=== PATIENT | male | born 1945 | race Caucasian/White ===

== ENCOUNTER 2023-12-28 09:22 | Day surgery (SDC) | payer MEDICARE, BC ==
[~2023-12-28] VITALS: Ht 182.9 cm; Wt 102.9 kg
[2023-12-28] VITALS (13 sets, daily range): BP systolic 127–164; BP diastolic 60–81; PULSE 54–84; TEMP 97.6–98.8
[~2023-12-28 09:22] MED LIST: Famotidine 20 MG TAB PO SCH; NS 1,000 ML IV SCH
--- NOTE | 2023-12-28 10:41 | NUR ---
Pt admitted to [facility] [place] [facility] at 0940. Admission assessments complete. Consent signed. 18G IV inserted into left wrist, lab specimen obtained, NS infusing as ordered. 250 ml of clear yellow urine emptied from chronic fonseca catheter, present on admission. Allergies, medications, and pharmacy reviewed. Daughter at bedside. See EMAR for medications. Cart in low position, call light within reach. Questions answered.
[2023-12-28 10:46] LABS: CALCIUM 9.9 mg/dL (8.4-10.2); CREATININE, serum 2.5 mg/dL (0.72-1.25); POTASSIUM 5.4 mEq/L (3.5-4.5)
[2023-12-28] MEDS ORDERED: Midazolam 2 MG/2 ML VIAL ONE (10:46)
[2023-12-28] MEDS ORDERED: Lidocaine PF 2% (20 MG/ML) 5 ML VIAL ONE (10:46)
[2023-12-28] MEDS ORDERED: NS 10 ML IV ONE (10:46)
[2023-12-28] MEDS ORDERED: fentaNYL 50 MCG/ML 2 ML VIAL ONE (10:46)
[2023-12-28] MEDS ORDERED: Ondansetron 4 MG/2 ML VIAL IV PRN ×2 (11:15→13:15)
[2023-12-28] MEDS ORDERED: Morphine 2 MG/1 ML VIAL [PACU/SDC ONLY] IV PRN (11:15)
[2023-12-28] MEDS ORDERED: Meperidine 50 MG/ML 1 ML VIAL IV PRN (11:15)
[2023-12-28] MEDS ORDERED: HYDROmorphone 1 MG/1 ML SYRINGE [PACU/SDC ONLY] IV PRN (11:15)
[2023-12-28] MEDS ORDERED: Hyoscyamine 0.125 MG Sublingual TAB SL PRN (13:15)
[2023-12-28] MEDS ORDERED: Morphine 4 MG/ML VIAL IV PRN (13:15)
[2023-12-28] MEDS ORDERED: Magnes Hydrox (MOM) 80 MG/ML 30 ML CUP PO PRN (13:15)
[2023-12-28] MEDS ORDERED: 1/2 NS & 20 mEq KCl 1,000 ML IV SCH (13:15)
[2023-12-28] MEDS ORDERED: NS Irrig Soln 3000 ML SOLN IR PRN (13:15)
[2023-12-28] MEDS ORDERED: Acetaminophen 325 MG TAB PO PRN (13:15)
--- NOTE | 2023-12-28 15:02 | NUR ---
PATIENT BROUGHT TO FLOOR AT APPROXIMATELY 1350. POST OP VITALS RUNNING AND WNL. FLUIDS INFUSING INTO LEFT WRIST AT 75ML/HOUR. [address] WAY DUARTE WITH CBI RUNNING AT A MODERATE RATE AND TO TRACTION. URINE PINK WITH SCATTERED CLOTS. PATIENT DENIES ANY PAIN OR BLADDER SPASMS. NO FURTHER NEEDS. CALL LIGHT IN REACH.
--- NOTE | 2023-12-28 19:36 | NUR ---
PT RESTING IN BED, ALERT AND ORIENTEDX4. ASSESSED PT. RATES PAIN 2/10 IN THE SHOULDERS FROM ARTHRITIS. CBI IS RUNNING MODERATLEY FAST. URINE IS LIGHT PINK. NO CLOTS. IV FLUIDS RUNNING INTO RIGHT WRIST AT 75ML/HR. PT HAS SCDS ON. ADDED CBI FLUID AND EMPTIED CATHETER. NO OTHER COMPLAINTS AT THIS TIME. CALL LIGHT WTIHIN REACH.
[2023-12-28] MEDS ORDERED: Nystatin 100,000 Units/GM Ointment 15 GM TUBE TP SCH (21:00)
--- NOTE | 2023-12-28 22:40 | NUR ---
PT GOT UP TO GO TO THE BATHROOM AND CLOTTED OFF. IRRIGATED ONCE AND URINE IS NOW FLOWING CLEAR AGAIN.
--- NOTE | 2023-12-28 23:51 | NUR ---
PT CLOTTED OFF AGAIN. IRRIGATED AND TURNED UP CBI PACE. URINE IS FLOWING CLEAR AGAIN. M
--- NOTE | 2023-12-28 23:55 | NUR ---
BEDSIDE SHIFT RPEORT COMPLETED. CBI GOING AT A FAST RATE. THIS RN EMPTIED 3250CC OF LIGHT RED URINE FROM DUARTE CATHETER BAG. PATIENT SLEEPING AND APPEARS TO BE RESTING COMFORTABLY, RESPIRATIONS WNL. PATIENT CALL LIGHT WITHIN REACH.
[2023-12-29] VITALS (7 sets, daily range): BP systolic 125–161; BP diastolic 69–77; PULSE 79–93; TEMP 97.9–98.7
--- NOTE | 2023-12-29 01:30 | NUR ---
PATIENT LAB WORK FROM PRIOR DAY SHOWS POTASSIUM OF 5.4. PER PATINET HE HAD A GOOD DINNER AND HAS BEEN INTAKING PO FLUDIS. IVF WITH K STOPPED.
--- NOTE | 2023-12-29 05:33 | NUR ---
CBI RUNNING INFUSING. PATIENT DENIES ANY NEEDS OR COMPLAINTS AT THIS TIME. CALL LIGHT WTIHIN REACH.
--- NOTE | 2023-12-29 07:15 | NUR ---
CBI DUARTE CATHETER PRIMED AND PULLED ORDERED. SIX CUPS IN BATHROOM, PATIENT HAS A URINAL. PATEIN VOICES UNDERSTANDING OF NEEDED PO HYDRATION AND POST CBI INSTRUCITONS. PATIENT SITTING UP IN RECLINER, CALL LIGHT WITHIN REACH.
--- NOTE | 2023-12-29 08:00 | NUR ---
PATIENT IS A&O. VSS. NO COMPLAINTS. GPS FIELD DATA COLLECTOR P&P BEFORE SHIFT CHANGE. PATIENT HAS URINAL AT BEDSIDE AND GIVEN POST DUARTE REMOVAL EDUCATION. 6 CUP ROUTINE STARTED. PRN LEVSIN GIVEN. LEFT WRIST IV TO INT. TOLERATING GEN DIET WELL. HEAD TO TOE ASSESSMENT COMPLETE. NO OTHER NEEDS AT THIS TIME. CALL LIGHT IN REACH.
--- NOTE | 2023-12-29 09:05 | NUR ---
Solar Sales Consultant met with patient to discuss discharge planning. Patient lives in [place] and stated his , Dora (ph#[phone]) is currently staying in [place], [place]. Patient sees Dr. Mata for primary care and gets medications from [facility]. Patient stated he does have difficulties affording medications because he does not have a PT D plan. Patient stated his PCP prescribed him a medication for covid that was going to cost him $1300 so he declined to take it. SW asked patient if cost is keeping him from taking medications and patient stated "there are a lot of medications I don't take", but then went on to deny any issues. Patient does not have DPOA-HC and was not interested in completing one at this time. Patient plans to return home at time of discharge. Discharge Plan: Home
--- NOTE | 2023-12-29 14:30 | NUR ---
GAVE DISCHARGE INSTRUCTIONS, DISCUSSED F/U APT, AND ANSWERED QUESTIONS/CONCERNS. LEFT WRIST IV DC'D AND COVERED WITH [employer]ZE [employer]AN. PATIENT IS DRESSED, PACKED, AND ESCORTED OUT VIA WC TO PERSONAL VEHICLE WITH DAUGHTER.
== END 2023-12-29 14:33 | disposition home or self-care (01) ==
LOC: SDCO 09:22 → SURG 14:05 → SDCO 12-29 14:33
PROVIDERS: Registered Nurse
DX: N40.1 Benign prostatic hyperplasia with lower urinary tract symptoms (principal); R39.12 Poor urinary stream; R35.1 Nocturia; R39.14 Feeling of incomplete bladder emptying; Z87.891 Personal history of nicotine dependence; Z79.82 Long term (current) use of aspirin
CPT/HCPCS: OP; J0665; J0690; J2250; J2270; J2704; J3010; J3480; J7030